=== PATIENT | male | born 1990 | race Native Hawaiian/Other Pacific Islander ===

== ENCOUNTER 2017-01-18 18:23 | Emergency (ER) | payer SELFPAY ==
[2017-01-18 18:29] VITALS: RESP 18
[2017-01-18] MEDS ORDERED: Naproxen 550 mg Tab PO STA (19:05)
[2017-01-18] MEDS ORDERED: Naproxen 550 mg Tab PO ONE (19:25)
--- NOTE | 2017-01-18 20:02 | C.PDOC ---
History Of Present Illness 26 year old male presents to the ED with complaints of back pain for three weeks. Patient notes no back pain when walking or standing but it is exacerbated when bending forward. He states he took ibuprofen yesterday with no relief. Patient denies trauma, change in sensation, bowel or urine incontinence. Time Seen by Provider: 01/18/17 18:50 Chief Complaint (Nursing): Back Pain History Per: Patient History/Exam Limitations: no limitations Onset/Duration Of Symptoms: Persistent (3 weeks ) Current Symptoms Are (Timing): Still Present Quality Of Discomfort: "Pain" Previous Symptoms: None Associated Symptoms: None Exacerbating Factor(s): Other (bending forward). denies: Standing Recent travel outside of the [place]: No Past Medical History Reviewed: Historical Data, Nursing Documentation, Vital Signs Vital Signs: Last Vital Signs Temp 98.7 F 01/18/17 20:10 Pulse 74 01/18/17 20:10 Resp 18 01/18/17 20:10 BP 124/76 01/18/17 20:10 Pulse Ox 99 01/18/17 22:14 Family History: States: Unknown Family Hx - Social History Hx Alcohol Use: No Hx Substance Use: No - Immunization History Hx Tetanus Toxoid Vaccination: No Hx Influenza Vaccination: Yes Hx Pneumococcal Vaccination: No Review Of Systems Constitutional: Negative for: Fever, Chills Cardiovascular: Negative for: Chest Pain Respiratory: Negative for: Shortness of Breath Musculoskeletal: Positive for: Back Pain. Negative for: Leg Pain Neurological: Negative for: Weakness, Numbness Physical Exam - Physical Exam Appears: Non-toxic, No Acute Distress Skin: Warm, Dry Head: Atraumatic Eye(s): bilateral: Normal Inspection, EOMI Nose: Normal Oral Mucosa: Moist Neck: Supple Chest: Symmetrical Respiratory: No Accessory Muscle Use Gastrointestinal/Abdominal: Normal Exam, Soft, No Tenderness Back: No CVA Tenderness, No Vertebral Tenderness, Paraspinal Tenderness ( paralumbar tenderness ) Male Genital: Normal Inspection Extremity: Normal ROM, No Tenderness Extremity: Bilateral: Atraumatic Neurological/Psych: Oriented x3, Normal Speech, Normal Cognition, Normal Motor, Normal Sensation Gait: Steady ED Course And Treatment O2 Sat by Pulse Oximetry: 99 (room air ) - Other Rad Back X-Ray X-Ray: Interpreted by Me, Viewed By Me Interpretation: No fracture or dislocation. Progress Note: Patient was given flexeril and naproxen. On reassessment, patient is resting comfortably, with improvement of back pain. Patient remains afebrile, with no bony tenderness, extremity numbness or weakness, or abdominal pain. Patient is ambulatory in the emergency department with no signs of discomfort. Patient was advised to follow up with physician/clinic in 1-2 days. Disposition - Disposition Disposition: HOME/ ROUTINE Disposition Time: 20:01 Condition: STABLE Additional Instructions: Follow up with primary medical doctor in 1-3 days without fail for further evaluation. Take medications as prescribed. Return to the emergency department at any time if symptoms persist or worsen. Prescriptions: Cyclobenzaprine [Cyclobenzaprine HCl] 10 mg PO TID #20 tab Naproxen [Naprosyn] 1 tab PO BID PRN #20 tab PRN Reason: Pain Instructions: Acute Low Back Pain (ED) Forms: [facility] (Romansh) - Clinical Impression Clinical Impression: Low back pain - Scribe Statement The provider has reviewed the documentation as recorded by the Scribchapis Bob All medical record entries made by the Yannibchapis were at my direction and personally dictated by me. I have reviewed the chart and agree that the record accurately reflects my personal performance of the history, physical exam, medical decision making, and the department course for this patient. I have also personally directed, reviewed, and agree with the discharge instructions and disposition.
[2017-01-18 20:11] VITALS: BP 124/76; PULSE 74; TEMP 98.7
[2017-01-18 22:11] VITALS: O2SAT 99
--- NOTE | 2017-01-19 08:22 | RAD ---
PROCEDURE: Radiographs of the Lumbar Spine. HISTORY: pain COMPARISON: No prior. FINDINGS: BONES: There is straightening of the lumbar curvature without fracture or spondylolisthesis identified. No suspicious lytic or blastic changes appreciated to body disc interspace heights are within normal limits. Local soft tissues appear unremarkable as imaged. DISC SPACES: Unremarkable. OTHER FINDINGS: None. IMPRESSION: Straightened lumbar curvature without fracture or spondylolisthesis. If symptom persist or worsen or is otherwise may be clinically indicated, follow-up MRI may be considered.
== END 2017-01-18 20:14 | disposition home or self-care (01) ==
LOC: C.ER 18:23
DX: M54.5 Low back pain (principal)

== ENCOUNTER 2017-02-17 18:38 | Emergency (ER) | payer SELFPAY ==
[2017-02-17 19:00] VITALS: TEMP 97.6; O2SAT 99
[2017-02-17] MEDS ORDERED: Lidocaine 5% Patch TD STA (19:30)
--- NOTE | 2017-02-17 19:31 | C.PDOC ---
History Of Present Illness 02/17/2017 19:43 A 26 year old male, whom has significant past medical history, presents to the emergency department complaining of lower back pain for 1 month. Patient reports pain is worse on right side than left, and radiates towards bottom and thigh. Also, patient mentions pain worsens upon movement or bending. Patient notes he was seen here few weeks ago and was given medication for pain. After having finished prescription, pain returned. Patient denies of any fever, numbness, weakness, or incontinence. Patient requests for MRI at this time. No PMD Time Seen by Provider: 02/17/17 19:06 Chief Complaint (Nursing): Back Pain History Per: Patient History/Exam Limitations: no limitations Onset/Duration Of Symptoms: Days (1 month) Current Symptoms Are (Timing): Still Present Previous Symptoms: Back Pain (lower back pain, worse on right side than left) Past Medical History Reviewed: Historical Data, Nursing Documentation, Vital Signs Vital Signs: Last Vital Signs Temp 97.6 F 02/17/17 18:57 Pulse 90 02/17/17 20:24 Resp 20 02/17/17 20:24 BP 122/78 02/17/17 20:24 Pulse Ox 99 02/17/17 20:24 - Medical History PMH: No Chronic Diseases Surgical History: No Surg Hx Family History: States: Unknown Family Hx - Social History Hx Alcohol Use: No Hx Substance Use: No - Immunization History Hx Tetanus Toxoid Vaccination: No Hx Influenza Vaccination: Yes Hx Pneumococcal Vaccination: No Review Of Systems Constitutional: Negative for: Fever Cardiovascular: Negative for: Chest Pain, Palpitations Respiratory: Negative for: Shortness of Breath Gastrointestinal: Negative for: Vomiting, Abdominal Pain Genitourinary: Negative for: Dysuria, Incontinence Musculoskeletal: Positive for: Back Pain (lower back pain worse on right-side than left-side; worsens with bending or any movement) Skin: Negative for: Rash Neurological: Negative for: Headache Physical Exam - Physical Exam Appears: Non-toxic, No Acute Distress, In Acute Distress Skin: Normal Color, Warm, Dry Head: Atraumatic, Normacephalic Eye(s): bilateral: Normal Inspection, EOMI Nose: Normal Throat: Normal Neck: Normal Cardiovascular: Rhythm Regular, No Murmur Respiratory: Normal Breath Sounds, No Accessory Muscle Use, No Rhonchi, No Wheezing Back: Normal Inspection (no erythema, no swelling, no masses), No Vertebral Tenderness, No Decreased ROM, No Muscle Spasm, Other (muscular tenderness to lumbosacral area) Extremity: Bilateral: Atraumatic, Normal Color And Temperature, Normal ROM Neurological/Psych: Oriented x3, Normal Speech Gait: Steady ED Course And Treatment O2 Sat by Pulse Oximetry: 99 (room air) Pulse Ox Interpretation: Normal Medical Decision Making Medical Decision Making: Impression: 26 year old male with lower back pain. Physical exam shows lumbar tenderness, negative straight leg raise test; steady gait. Prior Visits: Patient last seen 01/18/17 for back pain, with normal LS spine xray and given Rx for naproxen and flexeril. Plan: -- Ibuprofen -- Flexeril -- Lidoderm patch Re-eval: Patient reports pain is mildly improving. I explained to patient that his symptoms likely related to muscular and nerve impingement. Recommend follow up outpatient and to have MRI done outpatient. Disposition Counseled Patient/Family Regarding: Diagnosis, Need For Followup, Rx Given - Disposition Referrals: [facility] [Outside] Dmitriy Katz MD [Staff Provider] - Linda Mcdermott MD [Staff Provider] - Disposition: HOME/ ROUTINE Disposition Time: 19:31 Condition: STABLE Additional Instructions: Please follow up with primary doctor, recommend Dr Katz for further evaluation You may also call [facility] for any assistance [phone] in finding primary doctor that works with your insurance Or you can go to our [facility] for medical care and evaluation , run by Dr Mcdermott. Take medications as prescribed. Return to the emergency department at any time if symptoms persist or worsen. Prescriptions: Cyclobenzaprine [Cyclobenzaprine HCl] 10 mg PO TID #30 tab Naproxen [Naprosyn] 1 tab PO BID PRN #25 tab PRN Reason: Pain Instructions: Lumbar Radiculopathy (ED), Back Exercises (ED) Forms: [facility] ([place]occan) - POA Present On Arrival: None - Clinical Impression Clinical Impression: Low back pain, Lumbar radiculopathy - Scribe Statement The provider has reviewed the documentation as recorded by the Scribe 02/17/2017 Scribe Attestation: Perla Kaiser MD Scribe Attestation: All medical record entries made by the Scribe were at my direction and personally dictated by me. I have reviewed the chart and agree that the record accurately reflects my personal performance of the history, physical exam, medical decision making, and the department course for this patient. I have also personally directed, reviewed, and agree with the discharge instructions and disposition.
[2017-02-17] MEDS ORDERED: Lidocaine 5% Patch TD ONE (19:47)
[2017-02-17 20:25] VITALS: BP 122/78; PULSE 90; RESP 20
== END 2017-02-17 20:24 | disposition home or self-care (01) ==
LOC: C.ER 18:38
DX: M54.16 Radiculopathy, lumbar region (principal); M54.5 Low back pain